=== PATIENT | female | born 1990 | race Caucasian/White ===

== ENCOUNTER 2019-06-10 17:57 | Inpatient (IN) | payer BC, OTHER, SELFPAY ==
[2019-06-10] VITALS (12 sets, daily range): BP systolic 102–131; BP diastolic 41–71; PULSE 75–100; BMI 43.6
--- NOTE | 2019-06-10 18:33 | LDADM ---
This patient, Maribeth Velasquez, was admitted to Labor/Delivery/Recovery 104 on 06/10/19 at 17:57. Plans for labor, pain management and were discussed with patient. Patient/family oriented to hospital policies and general routines including ID bracelet, bed and alarms, visiting hours, pain management, procedures, bathroom and other care routines, personal items, smoking policy, room service/diet and guest tray routines, security routines, and visiting hours. Patient/Family are encouraged to report perceived risks to care and to ask questions if they do not understand what they are told or what they should do. See OBIX for further documentation.
[2019-06-10 19:13] LABS: Basophils Percent Auto 0.3 % (0.2-1.2); Eosinophils Percent Auto 0.4 % (0-4.4); Hematocrit 30.3 % (37.0-47.0); Immature Granulocyte Absolute 0.05 K/mm3 (0.00-0.031); Immature Granulocyte Percent A 0.5 % (0-0.5); Lymphocytes Absolute Auto 1.82 K/mm3 (0.9-3.2); Lymphocytes Percent Auto 18.8 % (18.3-44.2); Mean Corpuscular Hemoglobin 30.9 pg (26-34); Mean Corpuscular Volume 93.5 fl (80-100); Monocytes Absolute Auto 0.6 K/mm3 (0.1-0.6); Monocytes Percent Auto 6.6 % (2.6-8.5); Neutrophils Absolute Auto 7.1 K/mm3 (1.3-6.7); Neutrophils Percent Auto 73.4 % (45.5-73.1); Platelet Count Result 235 k/mm3 (150-375); Red Blood Count 3.24 M/mm3 (4.2-5.4); Red Cell Distribution Width 14.5 % (11.5-14.5); White Blood Count 9.7 K/mm3 (4.5-10.0)
[2019-06-10] MEDS: DINOPROSTONE 10 MG VAG INSERT VAGINAL (19:17)
--- NOTE | 2019-06-10 21:16 | P.PNAN_ITS ---
Anes - Eval Pre Procedure Procedure: labor epidural Date/Time: 06/10/19 21:16 Surgeon: franco Pre Op Diagnosis: IOL Patient Data Age: 28 Gender: F Height: 1.5 m Weight: 98 kg Last Vital Signs Pulse 88 06/10/19 18:31 BP 123/62 06/10/19 18:31 Allergies Allergy/AdvReac Type Severity Reaction Status Date / Time No Known Allergies Allergy Verified 05/15/19 15:32 Home Medications Medication Instructions Recorded Confirmed Type PNV cmb#95-ferrous fumarate-FA 1 tablet PO DAILY 05/15/19 05/15/19 History [] Laboratory Tests 06/10/19 06/10/19 06/10/19 18:47 18:47 18:47 WBC 9.7 K/mm3 K/mm3 (4.5-10.0) RBC 3.24 M/mm3 L M/mm3 (4.2-5.4) Hgb 10.0 g/dL L g/dL (12.0-15.0) Hct 30.3 % L % (37.0-47.0) MCV 93.5 fl fl (80-100) MCH 30.9 pg pg (26-34) MCHC 33.0 g/dl g/dl (32-36) RDW 14.5 % % (11.5-14.5) Plt Count 235 k/mm3 k/mm3 (150-375) MPV 9.0 fl fl (7.4-10.4) Immature Gran % (Auto) 0.5 % % (0-0.5) Neut % (Auto) 73.4 % H % (45.5-73.1) Lymph % (Auto) 18.8 % % (18.3-44.2) [place] % (Auto) 6.6 % % (2.6-8.5) Eos % (Auto) 0.4 % % (0-4.4) Baso % (Auto) 0.3 % % (0.2-1.2) Lymph # (Auto) 1.82 K/mm3 K/mm3 (0.9-3.2) [place] # (Auto) 0.6 K/mm3 K/mm3 (0.1-0.6) Eos # (Auto) 0.0 K/mm3 K/mm3 (0-0.3) Baso # (Auto) 0.0 K/mm3 K/mm3 (0.0-0.1) Abs Immat Gran (auto) 0.05 K/mm3 H K/mm3 (0.00-0.031) Absolute Neuts (auto) 7.1 K/mm3 H K/mm3 (1.3-6.7) Absolute Nucleated RBC 0.0 K/mm3 K/mm3 (0.0-0.012) Nucleated RBC % 0.0 % % (0.0-0.2) RPR Pending Blood Type A Positive Antibody Screen Negative Patient hx anesthesia problems: none Family hx anesthesia problems: none PMFSH Social History Social History Smoking status: Former smoker Alcohol intake: current Substance use: never Spiritual care concerns: No Exam Day of Procedure 06/10/19 21:16
[2019-06-10] MEDS: LACTATED RINGERS 1,000 ML 125 ML IV CONT (22:02)
[2019-06-11] VITALS (252 sets, daily range): BP systolic 84–150; BP diastolic 31–80; PULSE 59–115; RESP 16–20; TEMP 37–37.7; O2SAT 95–100
--- NOTE | 2019-06-11 00:06 | WPDOBADMIT ---
Obstetrics - Admit Note Admission Note: record reviewed. Additions to the history and/or subsequent changes in the physical findings follow. 28 y/o G1 at 39 3/7 weeks here desiring induction of labor. Cervidil was placed, but she had frequent contractions and FHR decelerations, so it was withdrawn. She continues to have painful contractions. No vaginal bleeding. essentially uncomplicated. EFW 7#13 oz last week. AVSS NST reactive TOCO: contractions every 2 min ABD soft, nontender, gravid, EXT nontender Cervix 2/50/-2. AROM with clear fluid. Vertex. IUPC placed. A: IUP at term desiring induction. P: Plan oxytocin as needed. Anticipate .
[2019-06-11] MEDS: TERBUTALINE SULFATE 1 MG/ML VIAL (01:45)
[2019-06-11] MEDS: LACTATED RINGERS 1,000 ML 125 ML IV CONT ×2 (03:12→12:17)
--- NOTE | 2019-06-11 05:28 | PM.OBPNLAB ---
Pain Control Date/time seen: 06/11/19 05:28 Comments: Comfortable with epidural. Had FHR variable decelerations which responded to treatment. Pelvic Exam Dilation (cm): 3 Effacement (%): 90 Contractions Monitor mode: Internal Contraction frequency: 4 Contraction pattern: Regular Contraction intensity: Mild Status status: Category l Assessment and Plan Plan: begin patient augmentation
[2019-06-11] MEDS: OXYTOCIN 30 UNITS/NS 500 ML 30 UNITS/500 ML BAG IV CONT (05:46)
[2019-06-11 06:58] LABS: Rapid Plasma Reagin Non-Reactive (NonReactive)
--- NOTE | 2019-06-11 12:35 | WPDANESEFPP ---
Anes - Eval Final PreProcedure Day of Procedure 06/11/19 12:35 Patient weight: obese Heart: regular rate and rhythm Lungs: clear to auscultation Airway: Mallampati scale class II Neurological: alert and oriented Last oral intake: 2 hours ASA classification: II Emergent: no Anesthesia type and monitoring: regional epidural and standard monitoring Informed Consent: The patient's anesthetic plan and its attendant risks and benefits were discussed with the patient/family/POA. Questions were solicited and answers provided to the satisfaction of the patient/family/POA.
[2019-06-11] MEDS: ceFAZolin 2 GM/D5W 50 ML 2 GM/50 ML BAG IVPB (13:11)
--- NOTE | 2019-06-11 13:15 | PM.OBPNLAB ---
Pain Control Date/time seen: 06/11/19 13:15 Comments: Pain still under good control Pelvic Exam Dilation (cm): 4 Effacement (%): 90 Contractions Monitor mode: Internal Contraction frequency: 2 Contraction pattern: Regular Status status: Category l Assessment and Plan Comments: No significant cervical change despite adequate contractions. Have offered primary for arrest of dilation. She understands risks of surgery to include risks of anesthesia, risks of pain, infection, bleeding, blood products, thromboembolic phenomena and damage to adjacent structures such as bowel, bladder, ureters, blood vessels and nerves. She understands all these risks and elects to proceed with surgery.
--- NOTE | 2019-06-11 14:17 | P.PCNOB_ITS ---
OB - Delivery Note Procedure Delivery date: 06/11/19 Procedure: Primary LTCS Induction method: per pitocin protocol and other (Cervidil) Delivery monitor: external FHT, external uterine and internal uterine Route of delivery: (LTCS) Specimen: Yes (Cord blood) Estimated blood loss (mL): 405 Anesthesia type: Epidural Disposition: PACU Complications: None Narrative: The patient was taken to the operating room where she was prepared and draped in the usual sterile fashion in dorsal supine position with a leftward tilt. She received cefazolin preoperatively. Epidural anesthesia was found to be adequate. A Pfannenstiel skin incision was made and carried through to the underlying layer of the fascia. The fascia was incised in the midline and the incision was extended laterally. The fascia was dissected free of the underlying rectus muscles. The rectus muscles were in the midline. The peritoneum was identified, tented up and entered sharply. The peritoneal incision was extended superiorly and inferiorly with good visualization of the bladder. The bladder blade was placed. The vesicouterine peritoneum was identified, tented up and entered sharply. The incision was extended laterally and the bladder flap was developed. The bladder blade was replaced. The uterus was then incised sharply in a transverse fashion along the lower uterine segment. The incision was extended laterally. The infant's head was delivered atraumatically to the sterile field, followed by the body. The nose and mouth were bulb suctioned. After a delay, the cord was clamped and cut. The infant was handed off the field. Cord blood was collected. The placenta was removed manually and was passed off the field. The uterus was exteriorized and cleared of all clots and debris. The uterine incision was reapproximated using 0 Monocryl in a running, locked fashion. A second, imbricating layer of the same suture was placed. Excellent hemostasis resulted as did excellent reapproximation of the normal anatomy. The uterus was returned the abdomen. The pelvis was irrigated copiously with warmed normal saline. Rigorous hemostasis was assured. The fascial layer was reapproximated using 0 Vicryl in a running fashion. The skin was closed with a running, subcuticular stitch of 4 0 Vicryl. Dermaflex was applied externally. Sponge, lap, needle and instrument counts were correct. The patient was taken to the recovery room in stable condition. The went to the nursery in stable condition. I was present and scrubbed the entire procedure. [place] Baby Date of : 06/11/19 Time of : 13:42 Weeks of gestation at delivery: 39 Infant gender: Male Weight (pounds): 9 Weight (ounces): 5 presentation: vertex Placenta delivery description: Manual Removal and Normal Configuration cord vessel description: 3 Vessels, Nuchal Cord and Around Body x1 score one minute: 9 score five minutes: 9
--- NOTE | 2019-06-11 14:19 | PM.OBDSVD ---
DS: Diagnosis Discharge Diagnosis (1) Term of male : Code(s): Z37.0 - Single live Status: Acute (2) Arrest of dilation, delivered, current hospitalization: Code(s): O62.1 - Secondary uterine inertia Status: Acute OB - DS: Summary OB Procedures : None OB Procedures Intrapartum: OB Procedures: : None Time Spent with Patient Time attestation: Total time spent providing and/or coordinating discharge services: DS: Data Data Completed and Pending Labs on day of discharge: Labs from last 24 hours 06/10/19 06/10/19 06/10/19 18:47 18:47 18:47 WBC 9.7 RBC 3.24 L Hgb 10.0 L Hct 30.3 L MCV 93.5 MCH 30.9 MCHC 33.0 RDW 14.5 Plt Count 235 MPV 9.0 Immature Gran % (Auto) 0.5 Neut % (Auto) 73.4 H Lymph % (Auto) 18.8 [place] % (Auto) 6.6 Eos % (Auto) 0.4 Baso % (Auto) 0.3 Lymph # (Auto) 1.82 [place] # (Auto) 0.6 Eos # (Auto) 0.0 Baso # (Auto) 0.0 Abs Immat Gran (auto) 0.05 H Absolute Neuts (auto) 7.1 H Absolute Nucleated RBC 0.0 Nucleated RBC % 0.0 RPR Non-reactive Blood Type A Positive Antibody Screen Negative Discharge Plan Discharge Attending physician on discharge: Abdulkadir Morales Discharging Clinician: Abdulkadir Morales Patient Disposition: Home, Self-Care Activity: may shower, may drive after 2 weeks and pelvic rest Diet: regular Wound Care Instructions: incision open to air Discharge Instructions: Call or return if temperature above 100.4? F, increased abdominal pain, increased vaginal bleeding or any new problems. Stand Alone Forms: General Discharge Information Follow-up/Referrals: Abdulkadir Morales MD [Physician] - (4 weeks) Discharge Medications: New ibuprofen 600 mg tablet 600 mg PO Q6H PRN (Reason: cramps) Qty: 30 RF: 0 hydrocodone-acetaminophen [[place]] 5-325 mg tablet 1 - 2 tablet PO Q6H PRN (Reason: pain) Qty: 30 RF: 0 ferrous sulfate 325 mg (65 mg iron) tablet 325 mg PO DAILY Qty: 30 RF: 0 No Action PNV cmb#95-ferrous fumarate-FA [] 28 mg iron- 800 mcg Tablet 1 tablet PO DAILY RF: 0 Date of admission: 06/10/19 17:57 Primary Care Provider: PHYSICIAN,COUNSELING AIDE Admitting Provider: Abdulkadir Morales Attending physician on admission: Abdulkadir Morales
--- NOTE | 2019-06-11 18:49 | OBPPTRN ---
Patient transferred to post room #279 via stretcher. Support person present. Oriented to unit, room, information board, rooming in, admission packet and security measures. Patient verbalizes understanding.
[2019-06-11] MEDS: ONDANSETRON INJ 4 MG/2 ML VIAL IV PUSH (19:01)
[2019-06-11] MEDS: KETOROLAC 30 MG/ML VIAL (*BKC) IV PUSH (20:12)
[2019-06-11] MEDS: DEXTROSE 5%/0.45% SOD CHL 1,000 ML 125 ML IV CONT (20:14)
[2019-06-12] VITALS (7 sets, daily range): BP systolic 100–120; BP diastolic 58–69; PULSE 81–93; RESP 16–18; TEMP 36.5–37.3; O2SAT 98–99
[2019-06-12] MEDS: IBUPROFEN 600 MG TABLET PO ×4 (03:38→21:07)
[2019-06-12 05:30] LABS: Basophils Percent Auto 0.3 % (0.2-1.2); Eosinophils Percent Auto 0.3 % (0-4.4); Hematocrit 26.1 % (37.0-47.0); Hemoglobin 8.4 g/dL (12.0-15.0); Immature Granulocyte Absolute 0.06 K/mm3 (0.00-0.031); Immature Granulocyte Percent A 0.5 % (0-0.5); Lymphocytes Absolute Auto 1.52 K/mm3 (0.9-3.2); Lymphocytes Percent Auto 11.7 % (18.3-44.2); Mean Corpuscular HGB Conc 32.2 g/dl (32-36); Mean Corpuscular Hemoglobin 30.8 pg (26-34); Mean Corpuscular Volume 95.6 fl (80-100); Mean Platelet Volume 9.4 fl (7.4-10.4); Monocytes Absolute Auto 0.7 K/mm3 (0.1-0.6); Monocytes Percent Auto 5.3 % (2.6-8.5); Neutrophils Absolute Auto 10.6 K/mm3 (1.3-6.7); Neutrophils Percent Auto 81.9 % (45.5-73.1); Platelet Count Result 194 k/mm3 (150-375); Red Blood Count 2.73 M/mm3 (4.2-5.4); Red Cell Distribution Width 14.6 % (11.5-14.5); White Blood Count 12.9 K/mm3 (4.5-10.0)
--- NOTE | 2019-06-12 07:50 | PC.NURSE ---
Mother called out for assist feeding. Mother reports she will breastfeed followed by supplementation for low blood glucose. Infant has a tight frenulum, mother denies discomfort with nursing. Tongue is able to thrust past gum ridge. Reviewed feeding cues, frequencies, duration of feedings, feeding elimination flow sheet, and signs of adequate intake. Demonstrated stimulation techniques to wake for feeding. Assisted with to breast. Reviewed positioning/alignment in football, holding breast in C hold and guided asymmetrical latch on. Discussed rational for each. was able to latch correctly. Infant nursed eagerly, with steady draws and occasional swallowing noted. Reviewed signs of a correct latch, effective nursing and suck swallow ratio. was able to maintain latch without discomfort to mother. Nipple care reviewed. Suggested mother continue to stimulate during feeding to increase intake and assist infant with maintaining deep latch. Instructed mother to call out for RN assistance if she is unable to latch for feeding or she has discomfort with nursing. Instructed feeding should be initiated three hours from start of last feeding or if feeding cues are noted before. Mother voiced understanding of information shared.
[2019-06-12] MEDS: MULTIVIT/MIN/PREN/FOL AC/IRON TABLET 1 TAB PO (09:18)
[2019-06-12] MEDS: DOCUSATE SODIUM 100 MG CAPSULE PO ×2 (09:18→19:13)
[2019-06-12] MEDS: SIMETHICONE 80 MG TAB.CHEW PO (09:19)
--- NOTE | 2019-06-12 09:20 | P.PNOB_ITS ---
OB - PN: Subj Subjective Date/time seen: 06/12/19 09:20 Narrative: Pain OK. Tolerating diet. Would like circumcision for son. OB - PN: Obj Data Labs CBC & Chem 7: 06/12/19 04:28 Labs: Laboratory Results - last 24 hr 06/12/19 04:28 WBC 12.9 H RBC 2.73 L Hgb 8.4 L Hct 26.1 L MCV 95.6 MCH 30.8 MCHC 32.2 RDW 14.6 H Plt Count 194 MPV 9.4 Immature Gran % (Auto) 0.5 Neut % (Auto) 81.9 H Lymph % (Auto) 11.7 L [place] % (Auto) 5.3 Eos % (Auto) 0.3 Baso % (Auto) 0.3 Lymph # (Auto) 1.52 [place] # (Auto) 0.7 H Eos # (Auto) 0.0 Baso # (Auto) 0.0 Abs Immat Gran (auto) 0.06 H Absolute Neuts (auto) 10.6 H Absolute Nucleated RBC 0.0 Nucleated RBC % 0.0 OB - PN A/P Plan Comments: A: POD#1, doing well. P: Routine care. Reviewed circ. Exam Narrative: Exam Narrative: AVSS I/O OK ABD soft, nontender, fundus firm. Incision c/d/i. EXT nontender
[2019-06-12] MEDS: POLYSACCHARIDE IRON COMPLEX 150 MG CAPSULE PO ×2 (09:21→15:11)
--- NOTE | 2019-06-12 10:30 | PC.NURSE ---
Mother called out for assist feeding. Demonstrated stimulation techniques to wake for feeding. Assisted with to breast. Reviewed positioning/alignment in cross cradle, holding breast in U hold and guided asymmetrical latch on. Discussed rational for each. was able to latch correctly. nursed eagerly, with steady draws and occasional swallowing noted. Reviewed signs of a correct latch, effective nursing and suck swallow ratio. was able to maintain latch without discomfort to mother. Nipple care reviewed. Suggested mother continue to stimulate during feeding to increase intake and assist infant with maintaining deep latch. Instructed mother to call out for RN assistance if she is unable to latch for feeding or she has discomfort with nursing. Instructed feeding should be initiated three hours from start of last feeding or if feeding cues are noted before. Mother voiced understanding of information shared.
--- NOTE | 2019-06-12 12:22 | WPDANLDPN2 ---
Anes-Prog Note L&D Date/Time: 06/12/19 12:22 Comfortable throughout: section Neuraxial method: epidural Epidural/Spinal procedure site: clean & non-tender Neuro status: Neuro function grossly intact. Cardiovascular status: normal Respiratory status: normal Airway patency: baseline Mental status: baseline Post-Op hydration status: normal Vital Signs: Last Vital Signs Temp 36.5 C 06/12/19 11:15 Pulse 91 06/12/19 11:15 Resp 18 06/12/19 11:15 BP 100/61 06/12/19 11:15 Pulse Ox 98 06/12/19 11:15 I/O: Intake & Output 06/11/19 06/12/19 06/12/19 23:59 07:59 15:59 Intake Total 600 450 Output Total 775 475 Balance -175 -25 Post-procedural complaints: none Patient feedback: Patient satisfied with anesthetic care.
--- NOTE | 2019-06-12 12:22 | WPDANLDNPN2 ---
Anes-Prog Note L&D-Neuraxial Date/Time: 06/12/19 12:22 Neuraxial medications: epidural PF morphine Opiod-related complaints: none Patient feedback: Patient satisfied with post-operative pain management.
[2019-06-13] MEDS: IBUPROFEN 600 MG TABLET PO ×2 (04:00→13:03)
[2019-06-13 08:55] VITALS: BP 116/72; PULSE 86; RESP 18; TEMP 37.2; O2SAT 100
[2019-06-13] MEDS: POLYSACCHARIDE IRON COMPLEX 150 MG CAPSULE PO (09:22)
[2019-06-13] MEDS: MULTIVIT/MIN/PREN/FOL AC/IRON TABLET 1 TAB PO (09:22)
[2019-06-13] MEDS: DOCUSATE SODIUM 100 MG CAPSULE PO (09:22)
--- NOTE | 2019-06-13 12:50 | PM.OBPNVD ---
OB - PN: Subj Subjective Date/time seen: 06/13/19 12:50 Narrative: Pain OK. Tolerating diet. Would like to go home. OB - PN: Obj Data Labs CBC & Chem 7: 06/12/19 04:28 OB - PN A/P Plan Comments: A: POD#2, doing well. P: Home to f/u 4 weeks. Exam Narrative: Exam Narrative: AVSS ABD soft, nontender, fundus firm. Incision c/d/i. EXT nontender
[2019-06-14 07:49] VITALS: BP 104/62; PULSE 96; RESP 20; TEMP 36.8; O2SAT 100
--- NOTE | 2019-06-21 08:40 | PM.IMHP ---
H&P: HPI History of Present Illness Chief complaint: IOL Narrative: 28 y/o G1 at 39 2/7 weeks with arrest of dilation despite adequate contractions. Review of Systems Review of Systems: All systems reviewed & are unremarkable except as noted in HPI and below PMFSH Family History Family History Grandparent Asthma Diabetes mellitus Social History Social History Smoking status: Former smoker Alcohol intake: current Substance use: never Spiritual care concerns: No Meds Home Medications and Allergies Home Medications Medication Instructions Recorded Confirmed Type PNV cmb#95-ferrous fumarate-FA 1 tablet PO DAILY 05/15/19 05/15/19 History [] hydrocodone-acetaminophen [[place]] 1 - 2 tablet PO Q6H PRN #30 tablet 06/11/19 Rx ibuprofen 600 mg PO Q6H PRN #30 tablet 06/11/19 Rx ferrous sulfate 325 mg PO DAILY #30 tablet 06/12/19 Rx hydrocodone-acetaminophen [[place]] 1 - 2 tablet PO Q6H PRN #30 tablet 06/13/19 Rx hydrocodone-acetaminophen [[place]] 1 - 2 tablet PO Q6H PRN #30 tablet 06/13/19 Rx Allergies Allergy/AdvReac Type Severity Reaction Status Date / Time No Known Allergies Allergy Verified 05/15/19 15:32 Exam Const: Orientation/consciousness: patient oriented x3 Other: Well-developed, well-nourished female in no acute distress. Neck: Thyroid: thyroid normal Lymphatic: no lymphadenopathy noted (in neck, axilla or inguinal nodes) Resp: Effort & Inspection: normal respiratory effort Auscultation: clear to auscultation bilaterally Cardio: Rate: regular rate Rhythm: regular rhythm Heart sounds: S1 normal heart sound present and S2 normal heart sound present GI: Other: ABD: Soft, nontender, gravid. Vertex. : General: Yes no CVA tenderness Other: Cervix 4 cm Back/Spine/Pelvis: Back: no CVA tenderness Skin: General skin exam: normal color and no rashes or lesions noted Neuro: General: patient oriented x3 Extrem: Other: Extremities: nontender with no edema Psych: Mental Status: mental status grossly normal Affect: normal affect Assessment and Plan Assessment and plan (1) Arrest of dilation, delivered, current hospitalization: Code(s): O62.1 - Secondary uterine inertia Status: Acute Assessment and Plan: Offered primary . She understands risks of surgery to include risks of anesthesia, risks of pain, infection, bleeding, blood products, thromboembolic phenomena and damage to adjacent structures such as bowel, bladder, ureters, blood vessels and nerves. She understands all these risks and elects to proceed with surgery.
== END 2019-06-13 16:10 | disposition home or self-care (01) | DRG 788 ==
LOC: ANHLDR 06-11 14:22 → ANHOB2 06-11 16:46
PROVIDERS: Admitting Provider Obstetrics & Gynecology; Visit Provider Obstetrics & Gynecology
PROC: 10D00Z1 Extraction of Products of Conception, Low, Open Approach (ICD-10-PCS; CPT 59514; principal; 2019-06-11 13:00)
DX: O36.8330 Maternal care for abnormalities of the fetal heart rate or rhythm, third trimester, not applicable or unspecified (principal); Z37.0 Single live birth; Z3A.39 39 weeks gestation of pregnancy; O99.214 Obesity complicating childbirth; E66.9 Obesity, unspecified; O69.82X0 Labor and delivery complicated by other cord entanglement, without compression, not applicable or unspecified; O62.1 Secondary uterine inertia
CPT/HCPCS: 36415; 85025; 86592; 86850; 86900; 86901; A9270; J0131; J0690; J1885; J2274; J2405; J2590; J2795; J3105; J7030; J7120

== ENCOUNTER 2020-12-28 14:55 | Outpatient (CLI) | payer BC, OTHER, SELFPAY ==
[2020-12-28 15:23] LABS: Hemoglobin 10.4 g/dL (12.0-15.0); Mean Corpuscular HGB Conc 32.5 g/dl (32-36); Mean Corpuscular Hemoglobin 31.5 pg (26-34); Platelet Count Result 227 k/mm3 (150-375); Red Cell Distribution Width 14.4 % (11.5-14.5); White Blood Count 10.2 K/mm3 (4.5-10.0)
[2020-12-29 11:37] LABS: Rapid Plasma Reagin Non-Reactive (NonReactive)
== END 2020-12-28 14:56 | disposition home or self-care (01) ==
LOC: ANHLAB 14:59
PROVIDERS: Visit Provider Obstetrics & Gynecology
DX: Z01.818 Encounter for other preprocedural examination (principal)
CPT/HCPCS: 36415; 85027; 86592; 86850; 86900; 86901

== ENCOUNTER 2020-12-29 09:57 | Inpatient (IN) | payer BC, OTHER, SELFPAY ==
--- NOTE | 2020-12-04 15:04 | PC.NURSE ---
VERIFIED WITH OR SCHEDULE AND PATIENT --C/S ON 12/29/20 AT 1200 PATIENT GIVEN REQUISITION FOR LAB DRAW ON 12/28/20
[2020-12-29] VITALS (41 sets, daily range): BP systolic 90–126; BP diastolic 25–82; PULSE 53–88; RESP 16; TEMP 36.2–36.9; O2SAT 98–100; BMI 42.7
--- NOTE | 2020-12-29 10:27 | LDADM ---
This patient, Maribeth Velasquez, was admitted to Labor/Delivery/Recovery 119 on 12/29/20 at 09:57. Plans for labor, pain management and were discussed with patient. Patient/family oriented to hospital policies and general routines including ID bracelet, bed and alarms, visiting hours, pain management, procedures, bathroom and other care routines, personal items, smoking policy, room service/diet and guest tray routines, security routines, and visiting hours. Patient/Family are encouraged to report perceived risks to care and to ask questions if they do not understand what they are told or what they should do. See OBIX for further documentation.
[2020-12-29] MEDS: LACTATED RINGERS 1,000 ML 125 ML IV CONT (10:59)
--- NOTE | 2020-12-29 11:42 | P.HP_ITS ---
H&P: HPI History of Present Illness Date/Time: 12/29/20 11:42 29 y/o at 39 1/7 weeks with prior , desiring repeat. GBS neg. Chief Complaint: Here for c section Review of Systems Review of Systems: All systems reviewed & are unremarkable except as noted in HPI and below PMFSH Surgical History Surgical History (Updated 12/29/20 @ 11:45 by Abdulkadir Morales MD) History of delivery Family History Family History Grandparent Diabetes mellitus Asthma Son Partial hearing loss Social History Social History Smoking status: Never smoker Alcohol intake: current Substance use: never Spiritual care concerns: No Meds Home Medications and Allergies Home Medications Medication Instructions Recorded Confirmed Type PNV cmb#95-ferrous fumarate-FA 1 tablet PO DAILY 05/15/19 12/29/20 History [] ferrous sulfate 325 mg PO DAILY #30 tablet 06/12/19 12/29/20 Rx Allergies Allergy/AdvReac Type Severity Reaction Status Date / Time No Known Allergies Allergy Verified 12/04/20 14:40 Vital Signs Vital Signs - 24 hr 12/29/20 10:30 12/29/20 10:45 12/29/20 11:00 Pulse Rate 82 78 77 Blood Pressure 126/71 119/63 124/69 Exam Const: Orientation/consciousness: patient oriented x3 Other: Well- developed, well-nourished female in no acute distress. Neck: Thyroid: thyroid normal Lymphatic: no lymphadenopathy noted (in neck, axilla or inguinal nodes) Resp: Effort & Inspection: normal respiratory effort Auscultation: clear to auscultation bilaterally Cardio: Rate: regular rate Rhythm: regular rhythm Heart sounds: S1 normal heart sound present and S2 normal heart sound present GI: Other: ABD: Soft, nontender, nondistended, gravid. Vertex. FH 41 cm. FHR 140 bpm. No guarding or rebound tenderness. No hepatosplenomegaly. : General: Yes no CVA tenderness Other: Cervix closed, thick Back/Spine/Pelvis: Back: no CVA tenderness Skin: General skin exam: normal color and no rashes or lesions noted Neuro: General: patient oriented x3 Extrem: Other: Extremities: nontender with no edema Psych: Mental Status: mental status grossly normal Affect: normal affect Assessment and Plan Assessment and plan (1) Term : Code(s): Z34.90 - Encounter for supervision of normal , unspecified, unspecified trimester Status: Acute (2) History of delivery: Code(s): Z98.891 - History of uterine scar from previous surgery Status: Inactive Assessment and Plan: A: IUP at 39 1/7 weeks with prior , desires repeat. P: She desires repeat . She understands risks of surgery to include risks of anesthesia, risks of pain, infection, bleeding, blood products, thromboembolic phenomena and damage to adjacent structures such as bowel, bladder, ureters, blood vessels and nerves. She understands all these risks and elects to proceed with surgery.
--- NOTE | 2020-12-29 12:00 | WPDHPUPDATE1 ---
History and Physical Update Update Date/Time: 12/29/20 12:00 History and Physical has been reviewed, including an updated exam of the patient. There are NO changes in the patient's condition. Risks, benefits, and alternatives have been discussed and questions answered. Patient agrees to proceed with procedure.
--- NOTE | 2020-12-29 12:03 | WPDANESEPPF ---
Anes - Initial Pre Proc Eval Procedure: Operation Date: 12/29/20 12:00 Proposed Procedures p Repeat Section - Abdulkadir Morales MD Date/Time: 12/29/20 12:03 Surgeon: Abdulkadir Morales MD Pre Op Diagnosis: Patient Data Age: 29 Gender: F Height: 1.5 m Weight: 96 kg Last Vital Signs Pulse 77 12/29/20 11:00 BP 124/69 12/29/20 11:00 Allergies Allergy/AdvReac Type Severity Reaction Status Date / Time No Known Allergies Allergy Verified 12/04/20 14:40 Home Medications Medication Instructions Recorded Confirmed Type PNV cmb#95-ferrous fumarate-FA 1 tablet PO DAILY 05/15/19 12/29/20 History [] ferrous sulfate 325 mg PO DAILY #30 tablet 06/12/19 12/29/20 Rx Patient hx anesthesia problems: none Family hx anesthesia problems: none Results Review: All pre-operative results and documents have been reviewed as part of the pre-operative evaluation. [facility] Past Medical History Medical History (Updated 12/29/20 @ 12:04 by Billy Peters MD) Obesity Surgical History Surgical History History of delivery Family History Family History Grandparent Diabetes mellitus Asthma Son Partial hearing loss Social History Social History Smoking status: Never smoker Alcohol intake: current Substance use: never Spiritual care concerns: No Anes - Eval Final PreProcedure Day of Procedure 12/29/20 12:03 Patient weight: morbidly obese Heart: regular rate and rhythm Lungs: clear to auscultation Airway: Mallampati scale class II Neurological: alert and oriented Last oral intake: >/= 8 hours ASA classification: II Emergent: no Anesthetic plan: proceed Anesthesia type and monitoring: regional spinal and standard monitoring Results Review: All pre-operative results and documents have been reviewed as part of the pre-operative evaluation. Informed Consent: The patient's anesthetic plan and its attendant risks and benefits were discussed with the patient/family/POA. Questions were solicited and answers provided to the satisfaction of the patient/family/POA.
[2020-12-29] MEDS: ceFAZolin 2 GM/D5W 50 ML 2 GM/50 ML BAG IVPB (12:16)
--- NOTE | 2020-12-29 13:39 | PM.OBPRVD ---
OB - Delivery Note Procedure Delivery date: 12/29/20 Procedure: Procedures Operation Date: 12/29/20 12:00 <No data on this case meets the specified criteria> Repeat low transverse delivery Delivery monitor: external FHT and external uterine Route of delivery: Specimen: Yes (cord blood) Quantitative Blood Loss (ml): 570 Anesthesia type: Spinal Disposition: PACU Complications: None Narrative: The patient was taken to the operating room where she was prepared and draped in the usual sterile fashion in dorsal supine position with a leftward tilt. She received cefazolin preoperatively. Spinal anesthesia was found to be adequate. A Pfannenstiel skin incision was made along the previous scar line and was carried through to the underlying layer of the fascia. The fascia was incised in the midline and the incision was extended laterally. The fascia was dissected free of the underlying rectus muscles. The rectus muscles were in the midline. The peritoneum was identified, tented up and entered sharply. The peritoneal incision was extended superiorly and inferiorly with good visualization of the bladder. The bladder blade was placed. The vesicouterine peritoneum was identified, tented up and entered sharply. The incision was extended laterally and the bladder flap was developed. The bladder blade was replaced. The uterus was then incised sharply in a transverse fashion along the lower uterine segment. The incision was extended laterally. The infant's head was delivered atraumatically to the sterile field, followed by the body. The nose and mouth were bulb suctioned. After a delay, the cord was clamped and cut. The was handed off the field. Cord blood was collected. The placenta was removed manually and was passed off the field. The uterus was exteriorized and cleared of all clots and debris. The uterine incision was reapproximated using 0 Monocryl in a running, locked fashion. A second, imbricating layer was placed. The uterus was returned the abdomen. The pelvis was irrigated copiously with warmed normal saline. Hemaderm was applied to the bladder flap. Rigorous hemostasis was assured. The fascial layer was reapproximated using 0 Vicryl in a running fashion. The skin was closed with a running, subcuticular stitch of 4 0 Vicryl. Dermaflex was applied externally. Sponge, lap, needle and instrument counts were correct. The patient was taken to the recovery room in stable condition. The went to the nursery in stable condition. I was present and scrubbed the entire procedure. Baby Date of : 12/29/20 Time of : 12:43 Weeks of gestation at delivery: 39 gender: Male Weight (pounds): 8 Weight (ounces): 5 presentation: vertex Placenta delivery description: Manual Removal and Normal Configuration cord vessel description: 3 Vessels and Delayed Cord Clamping score one minute: 9 score five minutes: 9
--- NOTE | 2020-12-29 13:42 | P.DS_ITS ---
DS: Admitting Diagnosis Discharge Date 01/01/21 Admitting Diagnosis IUP at 39 1/7 weeks Prior , desires repeat DS: Discharge Diagnosis Discharge Diagnosis (1) Term : Code(s): Z34.90 - Encounter for supervision of normal , unspecified, unspecified trimester Status: Acute (2) History of delivery: Code(s): Z98.891 - History of uterine scar from previous surgery Status: Acute OB - DS: Summary OB Procedures : None OB Procedures Intrapartum: OB Procedures: : None Peripartum Data Procedures: Procedures Operation Date: 12/29/20 12:00 <No data on this case meets the specified criteria> Repeat LTCS Discharge Plan Discharge Attending physician on discharge: Abdulkadir Morales Discharging Clinician: Abdulkadir Morales Patient Disposition: Home, Self-Care Activity: may shower, may drive after 2 weeks and pelvic rest Diet: regular Wound Care Instructions: incision open to air Discharge Instructions: Call or return if temperature above 100.4? F, increased abdominal pain, increased vaginal bleeding or any new problems. Stand Alone Forms: General Discharge Information Follow-up/Referrals: Abdulkadir Morales MD [Physician] - 4 Weeks Discharge Medications: New ibuprofen 600 mg tablet 600 mg PO Q6H PRN (Reason: cramps) Qty: 30 RF: 0 hydrocodone-acetaminophen 5-325 mg tablet 1 - 2 tablet PO Q6H PRN (Reason: pain) Qty: 30 RF: 0 Continued PNV cmb#95-ferrous fumarate-FA [] 28 mg iron- 800 mcg Tablet 1 tablet PO DAILY RF: 0 ferrous sulfate 325 mg (65 mg iron) tablet 325 mg PO DAILY Qty: 30 RF: 0 Date of admission: 12/29/20 09:57 Primary Care Provider: PHYSICIAN,CLINICAL RESEARCH PHYSICIAN Admitting Provider: Abdulkadir Morales Attending physician on admission: Abdulkadir Morales Condition: Stable
[2020-12-29] MEDS: ONDANSETRON INJ 4 MG/2 ML VIAL IV PUSH (14:55)
[2020-12-29] MEDS: OXYTOCIN 30 UNITS/NS 500 ML 30 UNITS/500 ML BAG 125 UNITS IV CONT (14:59)
[2020-12-29] MEDS: DEXTROSE 5%/0.45% SOD CHL 1,000 ML 125 ML IV CONT (19:27)
[2020-12-29] MEDS: diphenhydrAMINE HCl INJ 50 MG/ML VIAL 25 MG IV PUSH (19:27)
[2020-12-29] MEDS: KETOROLAC 30 MG/ML VIAL (*BKC) IV PUSH (19:28)
[2020-12-30] VITALS: BP 114/61; PULSE 86; RESP 18; TEMP 36.3; O2SAT 99
[2020-12-30 03:45] VITALS: BP 120/66; PULSE 78; RESP 18; TEMP 36.6; O2SAT 100
[2020-12-30 05:40] LABS: Basophils Percent Auto 0.3 % (0.2-1.2); Eosinophils Percent Auto 0.2 % (0-4.4); Hematocrit 25.7 % (37.0-47.0); Hemoglobin 8.3 g/dL (12.0-15.0); Immature Granulocyte Absolute 0.04 K/mm3 (0.00-0.031); Immature Granulocyte Percent A 0.4 % (0-0.5); Lymphocytes Absolute Auto 1.59 K/mm3 (0.9-3.2); Lymphocytes Percent Auto 14.6 % (18.3-44.2); Mean Corpuscular HGB Conc 32.3 g/dl (32-36); Mean Corpuscular Volume 99.2 fl (80-100); Mean Platelet Volume 9.6 fl (7.4-10.4); Monocytes Absolute Auto 0.6 K/mm3 (0.1-0.6); Monocytes Percent Auto 5.8 % (2.6-8.5); Neutrophils Absolute Auto 8.6 K/mm3 (1.3-6.7); Neutrophils Percent Auto 78.7 % (45.5-73.1); Platelet Count Result 209 k/mm3 (150-375); Red Blood Count 2.59 M/mm3 (4.2-5.4); Red Cell Distribution Width 14.6 % (11.5-14.5); White Blood Count 10.9 K/mm3 (4.5-10.0)
--- NOTE | 2020-12-30 08:04 | WPDANLDPN2 ---
Anes-Prog Note L&D Date/Time: 12/30/20 08:04 Comfortable throughout: section Neuraxial method: spinal Epidural/Spinal procedure site: clean & non-tender Neuro status: Neuro function grossly intact. Cardiovascular status: normal Respiratory status: normal Airway patency: baseline Mental status: baseline Post-Op hydration status: normal Vital Signs: Last Vital Signs Temp 36.6 C 12/30/20 03:45 Pulse 78 12/30/20 03:45 Resp 18 12/30/20 03:45 BP 120/66 12/30/20 03:45 Pulse Ox 100 12/30/20 03:45 Pain score (VAS): 4 I/O: Intake & Output 12/29/20 12/30/20 12/30/20 23:59 07:59 15:59 Intake Total 1000 600 Output Total 125 1350 Balance 875 -750 Post-procedural complaints: none Patient feedback: Patient satisfied with anesthetic care.
--- NOTE | 2020-12-30 08:05 | WPDANLDNPN2 ---
Anes-Prog Note L&D-Neuraxial Date/Time: 12/30/20 08:05 Neuraxial medications: intrathecal PF morphine Opiod-related complaints: none Patient feedback: Patient satisfied with post-operative pain management.
[2020-12-30] MEDS: DOCUSATE SODIUM 100 MG CAPSULE PO ×2 (08:11→17:39)
[2020-12-30] MEDS: POLYSACCHARIDE IRON COMPLEX 150 MG CAPSULE PO ×2 (08:11→17:40)
[2020-12-30] MEDS: MULTIVIT/MIN/PREN/FOL AC/IRON TABLET 1 TAB PO (08:11)
[2020-12-30] MEDS: SIMETHICONE 80 MG TAB.CHEW PO (08:11)
[2020-12-30] MEDS: HYDROcodone/acetaminophen (*CRX) 5-325 MG TABLET 1 TAB PO ×3 (08:12→17:40)
[2020-12-30] MEDS: IBUPROFEN 600 MG TABLET PO ×3 (08:12→22:30)
[2020-12-30 08:20] VITALS: BP 124/60; PULSE 94; RESP 16; TEMP 36.8; O2SAT 100
[2020-12-30 08:30] VITALS: PULSE 70; RESP 16; O2SAT 100
[2020-12-30 11:35] VITALS: BP 109/61; PULSE 70; RESP 16; TEMP 36.9; O2SAT 100
--- NOTE | 2020-12-30 11:45 | PC.NURSE ---
Consult with pt., mother reports is eagerly feeding with without issue. This is mother?s 2nd child to breastfeed. Mother states first child was sleepy and had jaundice and began pumping and bottle feeding at 1 week. Requested mother call out next feeding for observation per policy. Reviewed infant feeding cues, frequencies, duration of feedings, feeding elimination flow sheet, and signs of adequate intake. Demonstrated stimulation techniques to wake for feeding. Reviewed signs of a correct latch, effective nursing and suck swallow ratio. Nipple care reviewed of lanolin after feedings and warm compresses as needed. Instructed feeding should be initiated three hours from start of last feeding or if feeding cues are noted before. Mother voiced understanding of information shared.
--- NOTE | 2020-12-30 14:41 | PM.OBPNVD ---
OB - PN: Subj Subjective Date/time seen: 12/30/20 14:41 Narrative: Pain OK. Tolerating diet. Desires circumcision for son. OB - PN: Obj Data Labs CBC & Chem 7: 12/30/20 03:30 Labs: Laboratory Results - last 24 hr 12/30/20 03:30 WBC 10.9 H RBC 2.59 L Hgb 8.3 L Hct 25.7 L MCV 99.2 MCH 32.0 MCHC 32.3 RDW 14.6 H Plt Count 209 MPV 9.6 Immature Gran % (Auto) 0.4 Neut % (Auto) 78.7 H Lymph % (Auto) 14.6 L [place] % (Auto) 5.8 Eos % (Auto) 0.2 Baso % (Auto) 0.3 Lymph # (Auto) 1.59 [place] # (Auto) 0.6 Eos # (Auto) 0.0 Baso # (Auto) 0.0 Abs Immat Gran (auto) 0.04 H Absolute Neuts (auto) 8.6 H Absolute Nucleated RBC 0.0 Nucleated RBC % 0.0 OB - PN A/P Plan Comments: A: POD#1, doing well. P: Routine care. Reviewed circ. Exam Narrative: AVSS I/O OK ABD soft, nontender, fundus firm. Incision c/d/i. EXT nontender
--- NOTE | 2020-12-30 16:06 | PC.NURSE ---
Mother called out for assist with feeding. Infant is able to freely thrust tongue past gum ridge and flange both lips. Skin is intact on both nipples, no redness and bruising noted. Reviewed feeding cues, frequencies, duration of feedings, feeding elimination flow sheet, and signs of adequate intake. Demonstrated stimulation techniques to wake for feeding. Assisted with infant to breast. Reviewed positioning/alignment in football, holding breast in ?C? hold and guided asymmetrical latch on. Reviewed rational for each. able to latch correctly within a few attempts. Infant nursed eagerly with steady draws and frequent swallowing noted, some pausing noted. Reviewed signs of a correct latch, effective nursing and suck swallow ratio. Suggested mother stimulate while feeding to increase stimulation for milk supply, for increased intake and to assist with maintaining deep latch. was able to maintain latch without discomfort to mother. Demonstrated how to adjust latch more deeply while feeding as needed. Nipple care reviewed of lanolin after feedings, warm compresses as needed. Instructed mother to call out for RN assistance if she is unable to latch infant for feeding or she has discomfort with nursing. Instructed feeding should be initiated three hours from start of last feeding or if feeding cues are noted before. Mother voiced understanding of information shared.
[2020-12-30 18:45] VITALS: BP 100/55; PULSE 62; RESP 18; TEMP 37
[2020-12-30] MEDS: HYDROcodone/acetaminophen (*CRX) 10-325 MG TABLET 1 TAB PO (22:30)
[2020-12-31] MEDS: HYDROcodone/acetaminophen (*CRX) 10-325 MG TABLET 1 TAB PO ×3 (04:03→11:45)
--- NOTE | 2020-12-31 07:29 | P.PNOB_ITS ---
OB - PN: Subj Subjective Date/time seen: 12/31/20 07:29 Interval history: Pt doing well POD #2. She reports adequate pain control. She is ambulating without difficulty. She is tolerating PO. She has no complaints this AM. Patient comments: no complaints, pain well controlled, tolerating diet and flatus present OB - PN: Obj Data Labs CBC & Chem 7: 12/30/20 03:30 OB - PN A/P Plan day: 1 Plan: routine care Comments: patient doing well H/H 8.04/30, continue iron supplementation afebrile, VSS incision C/D/I noel removed, voiding spontaneously continue routine post op care Time Spent With Patient Time: Total time spent is greater than 50% in coordination of care (as documented) at patient's floor/unit and/or counseling patient: Time with patient: less than 15 minutes Review of Systems Constitutional: Constitutional: Reports no additional constitutional complaints Cardiovascular: Cardiovascular: Reports no additional cardiovascular complaints Respiratory: Respiratory: Reports no additional respiratory complaints Gastrointestinal: Gastrointestinal: Reports no additional gastrointestinal co mplaints Genitourinary: Genitourinary: Reports no additional female genitourinary complaints Exam Const: General: comfortable and no acute distress Resp: Effort & Inspection: normal respiratory effort Auscultation: clear to auscultation bilaterally Cardio: Rate: regular rate GI: GI Palp: Yes Soft to palpation, Yes Tenderness to palpation present (GI) (around incision ) and No Guarding due to palpation present (GI) Auscultation: normal bowel sounds Other: incision C/D/I, covered with Dermabond Psych: Appearance: grossly normal Mental Status: mental status grossly normal Affect: normal affect
[2020-12-31] MEDS: DOCUSATE SODIUM 100 MG CAPSULE PO (07:35)
[2020-12-31] MEDS: MULTIVIT/MIN/PREN/FOL AC/IRON TABLET 1 TAB PO (07:35)
[2020-12-31] MEDS: IBUPROFEN 600 MG TABLET PO ×2 (07:36→17:03)
[2020-12-31 07:40] VITALS: BP 103/64; PULSE 82; RESP 16; TEMP 36.6; O2SAT 100
[2020-12-31] MEDS: HYDROcodone/acetaminophen (*CRX) 5-325 MG TABLET 1 TAB PO (17:03)
[2020-12-31 20:00] VITALS: BP 124/58; PULSE 76; RESP 18; TEMP 36.3; O2SAT 99
[2021-01-01] MEDS: IBUPROFEN 600 MG TABLET PO (04:34)
[2021-01-01] MEDS: HYDROcodone/acetaminophen (*CRX) 5-325 MG TABLET 1 TAB PO ×2 (04:34→08:35)
[2021-01-01 08:00] VITALS: PULSE 70; RESP 16; O2SAT 100
[2021-01-01 08:30] VITALS: BP 114/66; PULSE 70; RESP 16; TEMP 36.5; O2SAT 100
--- NOTE | 2021-01-01 08:31 | PC.NURSE ---
Patient viewed the discharge video Mother & Baby Care, The First Two Weeks . Patient was given the opportunity and encouraged to ask questions. Patient verbalized understanding of information shared and has been given the mother/baby guide for home reference.
[2021-01-01] MEDS: DOCUSATE SODIUM 100 MG CAPSULE PO (08:34)
[2021-01-01] MEDS: POLYSACCHARIDE IRON COMPLEX 150 MG CAPSULE PO (08:34)
[2021-01-01] MEDS: MULTIVIT/MIN/PREN/FOL AC/IRON TABLET 1 TAB PO (08:35)
--- NOTE | 2021-01-01 08:45 | PC.NURSE ---
Consult with pt., observed mother is able to independently latch with appropriate positioning/alignment. eagerly latches on first attempt with long rhythmical draws and frequent swallowing noted. She denies any nipple discomfort, is feeding as required and waking to feed if needed. Infant has had several effective feedings in the past 24 hours, and is currently meeting outcomes for weight, output, jaundice and feeding frequencies. Mother chooses to supplement at times and after feedings if she does not feed is satisfied after . Mother states she feels confident to continue effective /bottle feeding at home. M Reviewed transition to breast milk, signs of adequate intake, and engorgement/relief. Instructed to call ICP if intake/output less than required. Reviewed regular medications mother is taking. Information provided per Elisha. Reviewed community resources on the [facility] website and in the Mom/Baby guide. Information on outpatient services provided. Mother has no further questions at this time. Instructed feeding should be initiated three hours from start of last feeding or if feeding cues are noted before until seen by ICP. Mother voiced understanding of information shared.
--- NOTE | 2021-01-01 10:08 | PM.OBPNVD ---
OB - PN: Subj Subjective Date/time seen: 01/01/21 10:08 Narrative: Pain OK. Tolerating diet. Would like to go home. OB - PN: Obj Data Labs CBC & Chem 7: 12/30/20 03:30 OB - PN A/P Plan Comments: A: POD#3, doing well. P: Home to f/u 4 weeks. Exam Narrative: AVSS ABD soft, nontender, fundus firm. Incision c/d/i. EXT nontender
[2021-01-04 10:31] VITALS: BP 130/64; PULSE 71; RESP 20; TEMP 36.8; O2SAT 99
== END 2021-01-01 11:25 | disposition home or self-care (01) | DRG 788 ==
LOC: ANHLDR 13:44 → ANHOB2 15:43
PROVIDERS: Admitting Provider Obstetrics & Gynecology; Visit Provider Obstetrics & Gynecology
PROC: 10D00Z1 Extraction of Products of Conception, Low, Open Approach (ICD-10-PCS; CPT 59514; principal; 2020-12-29 12:00)
DX: O34.219 Maternal care for unspecified type scar from previous cesarean delivery (principal); Z37.0 Single live birth; Z3A.39 39 weeks gestation of pregnancy
CPT/HCPCS: 36415; 85025; A9270; J0131; J0690; J1200; J1885; J2274; J2370; J2405; J2590; J7120

== ENCOUNTER 2022-03-08 08:13 | Outpatient (CLI) | payer BC, OTHER, SELFPAY ==
[2022-03-08 08:38] LABS: Cholesterol 187 mg/dL (0-200); HDL Direct 31 mg/dL; Triglycerides 106 mg/dL (<150)
[2022-03-08 08:48] LABS: LDL Cholesterol Direct 114 mg/dL
== END 2022-03-08 08:14 | disposition home or self-care (01) ==
LOC: ANHLAB 08:14
PROVIDERS: PCP Family Medicine; Visit Provider Family Medicine
DX: E78.5 Hyperlipidemia, unspecified (principal)
CPT/HCPCS: 36415; 80061